=== PATIENT | male | born 1980 | race African-American/Black ===

== ENCOUNTER 2017-04-29 11:45 | Emergency (ER) | payer OTHER ==
[~2017-04-29] VITALS: Ht 195.6 cm; Wt 102.5 kg
[2017-04-29 12:00] VITALS: TEMP 36.8; Ht 195.6 cm; Wt 102.5 kg
[2017-04-29] MEDS ORDERED: XYLOCAINE 1%/SOD BICARB 20 ML VIAL INFIL ONE (12:15)
--- NOTE | 2017-04-29 12:17 | EMERGENCY ROOM VISIT NOTE ---
ED Visit Note First contact with patient: 12:06 CHIEF COMPLAINT: Right elbow and arm laceration HISTORY OF PRESENT ILLNESS: This 36-year-old male patient presents to the emergency department ambulatory after cutting the right elbow and forearm. The patient was at work picking up pieces of upper plate. He states that he jumped down off the truck and hit his right elbow on a piece of copper, causing a large laceration to the elbow and it slid down and caused a laceration to the forearm as well. The bleeding has not stopped. Denies weakness or numbness of the hand or fingers. The patient denies any pain. The patient denies any other injuries. The patient's Tetanus shot is up to date. REVIEW OF SYSTEMS: A 6 system review of systems was completed with positives and pertinent negatives listed in the HPI. ALLERGIES: No known drug allergies MEDICATIONS: Antidepressants PMH: Patient denies SOCIAL HISTORY: Patient is employed. He does not smoke PHYSICAL EXAM: Vital Signs: Reviewed Nurse's notes, vital signs stable. GENERAL : At 36-year-old male, in no acute distress, well-developed, well-nourished. SKIN: There is a 5 cm long laceration on the dorsal aspect of the right forearm. The edges gape apart with traction. There is no foreign material in the wound and it looks clean. There is minimal bleeding. No deep structures such as tendons, bones, or nerves are seen in the base of the wound. Normal strength and movement of the hand and fingers. There is a second, 4 centimeter laceration to the right elbow in the area of the joint. It does involve the muscle and potentially the joint space beneath. Capillary refill less than 2 seconds. Normal sensation to light and sharp touch. EMERGENCY DEPARTMENT COURSE: I examined the patient. Using sterile technique the wound was cleaned with Betadine. The large but superficial, 5 cm laceration to the right forearm was repaired. The area was sterilely draped. 4 ml of 1% buffered lidocaine was used to anesthetize the skin. Once the patient was numb, the wound was copiously irrigated under pressure with sterile saline. The wound was explored and there were no deep structures such as tendons, bone, or ligaments present. The laceration was repaired using 9 simple interrupted 5-0 nylon sutures with the wound edges being well approximated. The patient tolerated the procedure well. The bleeding stopped. The area was cleaned with sterile saline and dressed with bacitracin ointment and bandage. The deeper laceration to the right elbow which measures 4 cm. Using sterile technique the wound was cleaned with Betadine. The area was sterilely draped. 5 ml of 1% buffered lidocaine was used to anesthetize the skin. Once the patient was numb, the wound was copiously irrigated under pressure with sterile saline. The fascia is involved. I am concerned that there is opening of the joint capsule. There is no pneumarthrosis on x-ray. I also had Dr. Phelan evaluate the wound. He had recommended closure and antibiotics. The laceration was repaired using 4 subcuticular 4-0 Vicryl sutures and 6 simple interrupted 4-0 nylon sutures with the wound edges being well approximated. The patient tolerated the procedure well. The bleeding stopped. The area was cleaned with sterile saline and dressed with bacitracin ointment and bandage. The patient will be placed on Augmentin. He should be evaluated immediately with any redness, swelling, warmth, drainage of pus. The patient was discharged home in good condition. DISCHARGE INSTRUCTIONS & TREATMENT: Keep wound clean and dry. Do not allow any crusting or dried blood to accumulate on sutures. If this occurs, use a 1:1 solution of hydrogen peroxide/water on a Q-tip to clean the wound. Use an antibiotic ointment for 3-4 days, then let wound dry. Suture removal in 12-14 days. Return sooner for any signs of infection (increasing redness, swelling, drainage). Ice and elevate for swelling and pain. Ibuprofen 600 mg every 6 hrs for pain. Keep covered when in sun until sutures removed then SPF 50 or higher for one year. Vitamin E oil if desired two weeks after suture removal for reduction of scar. Augmentin every 12 hours for 10 days to help prevent infection Limited use of the right arm for 10-12 days Current/Historical Medications Scheduled Amoxicillin & Pot Clavulanate (Augmentin 875-125 mg), 1 TAB PO BID Allergies Coded Allergies: Haloperidol (Unverified Allergy, Severe, SEIZURE, 04/29/17) Vital Signs Date Time Temp Pulse Resp B/P (MAP) Pulse Ox O2 Delivery O2 Flow Rate FiO2 04/29/17 14:25 88 20 148/85 98 04/29/17 12:00 36.8 85 20 147/85 98 Room Air Departure Information Impression Primary Impression: Arm laceration Additional Impressions: Forearm laceration Work related injury Dispostion Home / Self-Care Condition GOOD Prescriptions Amoxicillin & Pot Clavulanate (Augmentin 875-125 mg) 1 Tab Tab 1 TAB PO BID for 10 Days, #20 TAB Prov: Babita Zepeda PA-C 04/29/17 Referrals No Doctor, Assigned (PCP) Virgil Pickens D.O. Forms HOME CARE DOCUMENTATION FORM, IMPORTANT VISIT INFORMATION, Work Instructions Lifting Limitations: no more than 10 pounds Additional Instructions: Limited use of the right arm, no full flexion for 2 weeks Patient Instructions ED Laceration All, My [facility] Additional Instructions Keep wound clean and dry. Do not allow any crusting or dried blood to accumulate on sutures. If this occurs, use a 1:1 solution of hydrogen peroxide/ water on a Q-tip to clean the wound. Use an antibiotic ointment for 3-4 days, then let wound dry. Suture removal in 12-14 days. Return sooner for any signs of infection (increasing redness, swelling, drainage). Ice and elevate for swelling and pain. Ibuprofen 600 mg every 6 hrs for pain. Keep covered when in sun until sutures removed then SPF 50 or higher for one year. Vitamin E oil if desired two weeks after suture removal for reduction of scar. Augmentin as prescribed, until finished for infection Return with any redness, swelling, warmth, fever, drainage of pus Problem Qualifiers Primary Impression: Arm laceration Encounter type: initial encounter Laterality: right Qualified Codes: S41.111A - Laceration without foreign body of right upper arm, initial encounter Additional Impressions: Forearm laceration Encounter type: initial encounter Laterality: right Qualified Codes: S51.811A - Laceration without foreign body of right forearm, initial encounter
--- NOTE | 2017-04-29 13:16 | DIAGNOSTIC IMAGING REPORT ---
R ELBOW MIN 3 VIEWS ROUTINE HISTORY: 36 years-old Male right elbow laceration ? joint involvement acute laceration of the right elbow. COMPARISON: None available. TECHNIQUE: 3 views of the right elbow. FINDINGS: There is moderate spurring of the olecranon process of the elbow at the expected triceps insertion site. No acute fracture or dislocation. No large joint effusion or radiopaque foreign body. There is soft tissue swelling with linear lucency involving the proximal forearm which may correlate with patient history of laceration. IMPRESSION: 1. Mild spurring of the olecranon process without acute fracture or dislocation. 2. Negative for radiopaque foreign body. The above report was generated using voice recognition software. It may contain grammatical, syntax or spelling errors. Electronically signed by: Tremaine Da Silva M.D. 04/29/2017 1:15 PM Dictated Date/Time: 04/29/2017 1:13 PM
[2017-04-29] MEDS ORDERED: AMOX875T PO (14:20)
[2017-04-29 14:25] VITALS: BP 148/85; PULSE 88; O2SAT 98
== END 2017-04-29 14:33 | disposition home or self-care (01) ==
LOC: C.EDB 11:49 → C.EDD 14:33
DX: S51.811A Laceration without foreign body of right forearm, initial encounter (principal); S51.011A Laceration without foreign body of right elbow, initial encounter; W45.8XXA Other foreign body or object entering through skin, initial encounter; Y92.89 Other specified places as the place of occurrence of the external cause; Y99.0 Civilian activity done for income or pay